=== PATIENT | male | born 1940 | race Native Hawaiian/Other Pacific Islander ===

== ENCOUNTER 2016-11-26 08:49 | Inpatient (IN) | payer MEDICARE ==
[~2016-11-26] VITALS: Ht 170.2 cm; Wt 44.0 kg
[2016-11-26] MEDS ORDERED: OMEP20TA5 PO (09:11)
[2016-11-26] MEDS ORDERED: AMOX CLAV PO (09:11)
[2016-11-26] MEDS ORDERED: MOMETASONE 0.1% TOP (09:11)
[2016-11-26] MEDS ORDERED: FAMO20TA8 PO (09:11)
[2016-11-26] MEDS ORDERED: FLUTICASONE 50 MCG NAS (09:11)
[2016-11-26] MEDS ORDERED: SILO4CAP PO (09:11)
--- NOTE | 2016-11-26 11:25 | NUR ---
Pt signed consent for Ct chest with IV contrast after talking with Dr. Wright.
[2016-11-26 11:30] LABS: BASOPHILS # (AUTO) 0.1 K/uL (0.0-8.0); BASOPHILS % (AUTO) 0.7 % (0.0-2.0); EOSINOPHILS # (AUTO) 0.1 K/uL (0.0-0.7); EOSINOPHILS % (AUTO) 1.3 % (0.0-7.0); HEMATOCRIT 38.5 % (36.7-47.1); HEMOGLOBIN 13.2 g/dL (12.5-16.3); LYMPHOCYTES % (AUTO) 10.6 % (20.5-51.5); MEAN CORPUSCULAR HEMOGLOBIN 29.9 uug (23.8-33.4); MEAN CORPUSCULAR HGB CONC 34 g/dL (32.5-36.3); MEAN CORPUSCULAR VOLUME 86.8 fL (73.0-96.2); MONOCYTES # (AUTO) 0.9 K/uL (2.0-10.0); MONOCYTES % (AUTO) 9.4 % (0.0-11.0); NEUTROPHILS # (AUTO) 7.1 K/uL (1.8-8.9); PLATELET COUNT (AUTO) 351 K/uL (152-348); RED BLOOD CELL COUNT(AUTO) 4.43 MIL/uL (4.06-5.63); WHITE BLOOD COUNT (AUTO) 9.1 K/uL (3.6-10.2)
[2016-11-26 11:42] LABS: CARBON DIOXIDE 33 mmol/L (21-32); CHLORIDE 101 mmol/L (98-107); CREATININE 0.8 mg/dL (0.6-1.3); GLUCOSE 96 mg/dL (74-106); POTASSIUM 4.3 mmol/L (3.5-5.1); UREA NITROGEN, BLOOD 14 mg/dL (7-18)
[2016-11-26 11:47] LABS: ALANINE AMINOTRANSFERASE 31 U/L (16-63); ALKALINE PHOSPHATASE 82 U/L (50-136); ASPARTATE AMINOTRANSFERASE 20 U/L (15-37); BILIRUBIN,TOTAL 0.4 mg/dL (0.2-1.0); TOTAL PROTEIN, SERUM 7.9 g/dL (6.4-8.2)
--- NOTE | 2016-11-26 12:06 | NUR ---
Pt back from CT, no acute distress noted.
[2016-11-26 12:45] LABS: *BILIRUBIN,URIN NEGATIVE (NEGATIVE); *BLOOD, URINE Trace-lysed (NEGATIVE); *CLARITY,URINE CLEAR (CLEAR); *COLOR,URINE YELLOW (YELLOW); *KETONES,URINE NEGATIVE (NEGATIVE); *PROTEIN,URINE NEGATIVE (NEGATIVE); *UROBILINOGEN,URINE 0.2 E.U./dl (NORMAL); LEUKOCYTE ESTERASE ,URINE NEGATIVE (NEGATIVE); NITRITE, URINE NEGATIVE (NEGATIVE); UGLUCOSE NEGATIVE (NEGATIVE)
[2016-11-26 13:22] LABS: BACTERIA,URINE NONE SEEN /HPF (NONE SEEN); CALCIUM OXALATE CRYSTALS,UR MODERATE /HPF (NONE SEEN); RBC,URINE 0-3 /HPF (0-3); SQUAMOUS EPITHELIAL CELL,UR NONE SEEN /HPF (NONE SEEN); WBC,URINE 0-3 /HPF (0-3)
--- NOTE | 2016-11-26 13:25 | NUR ---
Pt refused ABG, Dr. Wright notified.
--- NOTE | 2016-11-26 13:30 | NUR ---
Per Dr. Wright he spoke with Dr. Ainsley Leonard and pt to be admitted to [facility]. [facility]N tx started by [facility].
--- NOTE | 2016-11-26 14:18 | NUR ---
Pt trans to tele, NAD noted.
--- NOTE | 2016-11-26 14:52 | NUR ---
76 YEAR OLD MALE RECEIVED FROM ER VIA WHEEL CHAIR FOR PNA IN STABLE CONDITION.V/S ARE STABLE ,ORIENT THE PT TO ROOM AND SURROUNDINGS ,CALL LIGHT WITH IN REACH.
[2016-11-26 15:28] VITALS: BP 151/82
--- NOTE | 2016-11-26 15:29 | NUR ---
D/C TELE PER DR STAUFFER
--- NOTE | 2016-11-26 15:29 | NUR ---
PT REFUSED BLOOD DRAW AND ABG DR MAZARIEGOS NOTIFIED
--- NOTE | 2016-11-26 16:09 | NUR ---
Clinical Pharmacy Note: Vancomycin Dosing per Pharmacy Subjective: Vancomycin IV to start on this 76 yo male patient for Possibly sepsis secondary to pneumonia/aspiration Objective: BUN 14/Scr 0.8 WBC 9.1 Temperature 98.2 ht: 67'' wt 97 lb Assessment/Plan: Will start vancomycin 750mg IVPB Q27hr for a predicted vancomycin steady state trough level of 15.6 mcg/ml. 1st dose is due today at 1800. Will draw a vancomycin trough level prior to the 4th dose of vancomycin (not ordered yet). Will monitor renal function and adjust vancomycin dose, if needed, should renal function change significantly. Will follow daily.
--- NOTE | 2016-11-26 16:19 | NUR ---
PT REFUSED THE I/V FLUIDS ,DR MAZARIEGOS NOTIFIED
--- NOTE | 2016-11-26 17:00 | NUR ---
PT LACTIC ACID IS 2.0 DR MAZARIEGOS NOTIFIED
--- NOTE | 2016-11-26 19:30 | NUR ---
received patient laying comfortably in bed. no acute distress noted. a&o x 4. on 02 2l nc. ambulatory. skin intact. hep lock on the right ac # 18. safety initiated. airborne isolation. call light within reach. will continue to monitor.
[2016-11-26 20:03] VITALS: BP 127/56
--- NOTE | 2016-11-26 20:15 | NUR ---
transport team here to supervisor opening and picking patient. patient going to [facility] 3rd floor with corry Lewis. Vital Sign stable. patient left with HL on the right ac # 18. discharge protocol followed/ belongings list completed.
== END 2016-11-26 20:15 | disposition short-term general hospital (02) | DRG 871 ==
LOC: ER 08:49 → TELE 14:06 → MED 15:38
PROVIDERS: ADMIT Internal Medicine; ATTEND Internal Medicine
DX: A41.9 Sepsis, unspecified organism (principal); J69.0 Pneumonitis due to inhalation of food and vomit; J96.00 Acute respiratory failure, unspecified whether with hypoxia or hypercapnia; E43 Unspecified severe protein-calorie malnutrition; R04.2 Hemoptysis; J47.1 Bronchiectasis with (acute) exacerbation; Z68.1 Body mass index [BMI] 19.9 or less, adult; R65.20 Severe sepsis without septic shock; D47.3 Essential (hemorrhagic) thrombocythemia; I70.0 Atherosclerosis of aorta
CPT/HCPCS: 36415; 70030-TC; 71020; 71260; 83605; 85025; 85610; 87040; 93005; A4663; J0696; J2543; J2930; J3370; J3490; J3590; J7030; J7050; J7060; Q9967